=== PATIENT | female | born 1985 | race African-American/Black ===

== ENCOUNTER 2016-11-16 12:05 | Outpatient (CLI) | payer OTHER ==
[~2016-11-16] VITALS: Ht 160 cm; Wt 80.0 kg
[~2016-11-16 12:05] MED LIST: PRENTAB9 PO
[2016-11-16] MEDS ORDERED: TUMS500C PO (12:15)
[2016-11-16 12:21] VITALS: BP 111/54
--- NOTE | 2016-11-16 13:03 | IPNPDOC ---
Text Note Date of Service The patient was seen on 11/16/16. NOTE Subjective: Ericka is a 31yo with a marcos IUP at 32w5d who presents to triage for itchy rash. She called the provider line and was told to come in if it didnt resolve with Benadryl overnight. She arrived to L&D instead of clinic and on questioning about obstetric complaints also endorsed not feeling movement today, so stayed for evaluation. She notes she has had this rash for the last two weeks. Arrived here having PCSed from [place] mid September. The rash is really just single itchy bumps that appear all over her body randomly, but itch so much that it keeps her from sleeping because it is worse at night. No itching on palms or soles of feet. Occasional lesion on her abdomen, back and extremities. No animals in the home. No concern for bed bugs. No changes in soaps/detergents, etc. ROS: Admits: irreg CTXs, good oral hydration Denies: Vaginal bleeding/discharge/loss of fluid, fever, N/V, dysuria, urinary urgency, vaginal itching or pain. Objective: Vitals wnl NST Reactive with no decels, mod feliberto, +accels [place]: ctx q2-5 min Physical Exam: General: WDWN gravid female in NAD Mental : AAOx3 Abdominal: Gravid abdomen without guarding or tenderness, one pinpoint scabbed over lesion with no erythema surrounding it Extremity: no edema in LE bilaterally, rare pinpoint scabbed over lesions with no surrounding erythema (SCE chaperoned by L&D RN): closed/thick/high (performed for ctx on toco, patient does not complaint of ctx) Assessment: Ericka is a 31yo with a marcos IUP at 32w5d with itchy diffuse, but rare bumps. No evidence of IHCP or PUPPS, no concern for scabies or fleas/ticks. Likely a simple or environment related atopic reaction. Vitals wnl. Reactive NST with incidentally noted ctx, SCE cl/thick/ high. Patient now feeling good movement. Plan: -Will Rx Sarna lotion to [place] - kick counts prn -encouraged adequate hydration -Return precautions given for bleeding, fluid loss, contractions, decreased movement, worsening of rash -medrec reviewed Dr. Nancy Hsieh MD [place] VS,Ciara, I+O VSCiara, I+O Vital Signs Date Time Temp Pulse Resp B/P Pulse Ox O2 Delivery O2 Flow Rate FiO2 11/16/16 12:21 98.6 92 18 111/54 NANCY HSIEH MD Nov 16, 2016 13:03
== END 2016-11-16 13:15 | disposition home or self-care (01) ==
LOC: M LDO 12:05
PROVIDERS: ATTEND Obstetrics & Gynecology
DX: O26.893 Other specified pregnancy related conditions, third trimester (principal); R21 Rash and other nonspecific skin eruption; Z3A.32 32 weeks gestation of pregnancy

== ENCOUNTER 2017-01-02 15:52 | Inpatient (IN) | payer OTHER ==
[~2017-01-02] VITALS: Ht 190.5 cm; Wt 86.0 kg
[2017-01-02] VITALS (29 sets, daily range): BP systolic 100–150; BP diastolic 53–82
[~2017-01-02 15:52] MED LIST changes: +TUMS500C PO
[2017-01-02] MEDS ORDERED: FIOR1CAP PO (16:23)
[2017-01-02] MEDS ORDERED: CYCL5TA PO (16:23)
[2017-01-02] MEDS ORDERED: SING10TA32 PO (16:24)
[2017-01-02] MEDS ORDERED: MUCI600T34 PO (16:24)
[2017-01-02] MEDS ORDERED: AMPICILLIN SOD 2 GM in D5W MINI-BAG PLUS 100 ML IV STA (19:15)
[2017-01-02] MEDS ORDERED: LACTATED RINGER'S 1000 ML IV STA (19:15)
[2017-01-02] MEDS: LR 1,000 ML IV SCH (19:31)
[2017-01-02] MEDS ORDERED: FENTANYL 2MCG/ML ROPIVACAINE 0.2% NACL 250 ML CADD As Ordered ONE (19:39)
[2017-01-02 19:45] LABS: MEAN CORPUSCULAR HEMOGLOBIN 29.6 pg (27.0-33.0); MEAN CORPUSCULAR HGB CONC 32.9 g/dl (32.0-36.5); MEAN CORPUSCULAR VOLUME 90.1 fl (80.0-96.0); RED CELL DISTRIBUTION WIDTH 14.4 % (11.5-14.5); WHITE BLOOD COUNT 7.9 K/mm3 (4.0-10.0)
[2017-01-02] MEDS ORDERED: LACTATED RINGER'S 1000 ML IV PRN (21:00)
[2017-01-02] MEDS ORDERED: ONDANSETRON 4MG/2ML VIAL (J2405) IV PRN (21:00)
[2017-01-02] MEDS ORDERED: ePHEDrine SULFATE 25 MG/5 ML(5MG/ML) SYRINGE IV PRN (21:00)
[2017-01-02] MEDS ORDERED: FENTANYL/ROPIVACAINE/NACL CADD 250 ML EPIDURAL SCH (21:00)
[2017-01-02] MEDS ORDERED: EPIDURAL/PCA KEYS XX PRN (21:00)
[2017-01-02] MEDS ORDERED: diphenhydrAMINE INJ 50MG/ML VIAL (J1200) IV PRN (21:00)
[2017-01-02] MEDS ORDERED: REFRIGERATOR IV KEYS XX PRN (21:00)
[2017-01-02] MEDS ORDERED: EPIDURAL COMMENT XX SCH (21:00)
[2017-01-02] MEDS ORDERED: NALOXONE INJ 0.4 MG/1 ML VIAL (J2310) IV PRN (21:00)
[2017-01-02] MEDS ORDERED: OXYTOCIN 30 UNITS IN 0.9% NaCl 500ML IV BAG (J2590) As Ordered ONE (22:20)
[2017-01-02] MEDS ORDERED: AMPICILLIN SOD 1 GM in D5W MINI-BAG PLUS 50 ML IV SCH (23:30)
[2017-01-02] MEDS ORDERED: OXYTOCIN DRIP 30 UNITS in APPROPRIATE DILUENT 1 EA IV SCH (23:31)
--- NOTE | 2017-01-02 23:40 | DNPDOC ---
Delivery Note Delivery Note DATE OF DELIVERY: Jan 02, 2017 at 2234 PREDELIVERY DIAGNOSIS: 39w3d gestation and labor. POST DELIVERY DIAGNOSIS: Delivered. PROCEDURE: Spontaneous vaginal delivery REGISTERED NURSE PRACTITIONER: Dr. José Luis Hsieh MD ANESTHESIA: epidural ESTIMATED BLOOD LOSS: 150mL. FINDINGS: 6 pound 11 ounce male infant, Score 8/9, nuchal cord times one. DELIVERY SUMMARY: Ericka is a 31yo G1 now P1001 who was admitted to L&D for active labor. She had an uncomplicated of a viable male at 2234 on 02 January 2017 at 39w3d. Head delivered OA, restituted HANNY. One tight nuchal cord reduced manually. Right anterior shoulder delivered followed by posterior shoulder and corpus, left compound hand noted. Cord clamped x2 and cut by patient's mother. Infant mouth/nares bulb suctioned. Spontaneous cry noted. Baby placed on mother's abdomen. Apgars 8/9, weight 9ep10bv or 3030g. Venous cord gas obtained secondary to late decelerations prior to delivery, arterial not able to be obtained. With gentle downward guidance and suprapubic pressure, placenta delivered spontaneously and intact with centrally inserted cord. Fundal massage until both uterine fundus and lower uterine segment firm; fundus at U-1. Pitocin 30 units IV bolus administered. Inspection of perineum and vaginal wall revealed no tears. Mom and in stable condition. Dr. José Luis Hsieh MD [place] Bangura MD Jan 02, 2017 23:40
[2017-01-02] MEDS ORDERED: RHOGAM 300 MCG (1500 IU) INJ (J2790) IM SCH (23:45)
[2017-01-02] MEDS ORDERED: DOCUSATE SODIUM 100 MG CAP PO PRN (23:45)
[2017-01-02] MEDS ORDERED: MEASLES,MUMPS,RUBELLA VACCINE INJ (MMR-II) (90707) SC SCH (23:45)
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
[2017-01-03 00:11] VITALS: BP 123/70
[2017-01-03 00:43] LABS: CORD GAS HCO3 V 20.4 MEQ/L; CORD GAS O2 SAT V 49.6 %; CORD GAS PCO2 V 39.3 mmHg; CORD GAS PH V 7.333 UNITS; CORD GAS PO2 V 35.2 mmHg; CORD GAS SBC V 19.2 MEQ/L; CORD GAS TCO2 V 21.6 MEQ/L
[2017-01-03 01:55] VITALS: BP 144/82
[2017-01-03 02:20] VITALS: BP 127/60
[2017-01-03] MEDS: IBUPROFEN 800 MG TAB PO PRN ×3 (03:03→20:09)
[2017-01-03 06:47] VITALS: BP 108/60
[2017-01-03] MEDS: LR 1,000 ML IV SCH ×2 (07:28→11:15)
[2017-01-03] MEDS: ACETAMINOPHEN 500 MG TAB PO PRN ×2 (09:45→16:56)
[2017-01-03] MEDS: PRENATAL VITAMIN TAB PO SCH (09:45)
[2017-01-03 18:00] VITALS: BP 110/62
[2017-01-04] MEDS: ACETAMINOPHEN 500 MG TAB PO PRN (01:56)
--- NOTE | 2017-01-04 02:08 | IPN ---
DATE: 01/03/2017 This lady and partner requested circumcision of their male after discussing the risks and benefits of circumcision, the medical and nonmedical indications of the penile block and aftercare, expressed understanding of the penile block and aftercare, answered all questions, signed and witnessed the consent form. We await the clearance by the production control clerk.
[2017-01-04] MEDS: IBUPROFEN 800 MG TAB PO PRN (05:38)
[2017-01-04 05:50] VITALS: BP 97/55
[2017-01-04] MEDS: PRENATAL VITAMIN TAB PO SCH (08:07)
--- NOTE | 2017-01-04 09:17 | IPNPDOC ---
Text Note Date of Service The patient was seen on 01/04/17. NOTE PPD#2 S: Ericka is a 31yo [id number] s/p uncomplicated at 39w3d after presenting in active labor. She has no complaints this am, lochia minimal, voiding well, ambulating without problem. without issues. O; Vitals wnl, afebrile Gen: A&O x3, sitting comfortably Cardiac: S1S2 present, no murmur Lungs: CTAB, no w/c/r Abdomen; FF @U-2cm, abdomen soft/non-distended/non-tender Ext: no pain with palpation of calves A: Ericka is a 31yo [id number] s/p uncomplicated at 39w3d after presenting in active labor. Hemodynamically stable without evidence of infection. Meeting all milestones. P: -discharge to home today vs boarding if needs to stay -home meds given: motrin, lanolin -follow-up PP visit in [address] José Luis Hsieh MD [place] DEIDRA VS,Ciara, I+O VS, Ciara, I+O Vital Signs Date Time Temp Pulse Resp B/P Pulse Ox O2 Delivery O2 Flow Rate FiO2 01/04/17 05:50 99.4 77 16 97/55 JOSÉ LUIS HSIEH MD Jan 04, 2017 09:17
[2017-01-04] MEDS ORDERED: IBUP-1114 PO (11:14)
== END 2017-01-04 16:45 | disposition home or self-care (01) | DRG 775 ==
LOC: M LDO 15:52 → M LDI 19:26 → M OBS 01-03 02:06
PROVIDERS: ADMIT Obstetrics & Gynecology; ATTEND Obstetrics & Gynecology
PROC: 10E0XZZ Delivery of Products of Conception, External Approach (ICD-10-PCS; principal; 2017-01-02)
DX: O99.52 Diseases of the respiratory system complicating childbirth (principal); J45.909 Unspecified asthma, uncomplicated; Z3A.39 39 weeks gestation of pregnancy; G43.909 Migraine, unspecified, not intractable, without status migrainosus; O99.354 Diseases of the nervous system complicating childbirth; O99.02 Anemia complicating childbirth; D64.9 Anemia, unspecified; O32.6XX0 Maternal care for compound presentation, not applicable or unspecified; O69.81X0 Labor and delivery complicated by cord around neck, without compression, not applicable or unspecified; Z37.0 Single live birth

== ENCOUNTER → 2017-07-10 | Outpatient (CLI) | payer OTHER ==
[~2017-07-10] MED LIST changes: +CYCL5TAB PO; +FIOR1CAP PO; +IBUP-1114 PO; +MUCI600T37 PO; +SING10TA32 PO
--- NOTE | 2017-07-10 15:04 | REP ---
MRI LUMBAR SPINE WITHOUT CONTRAST: HISTORY: Back pain. Decreased signal intensity on T2-weighted images is present in the L5-S1 intervertebral disc. The disc is decreased in height. These findings are consistent with disc degeneration. There is no disc bulge or herniation at the L1-2 through L3-4 levels. The nerves exit the neural foramina without compression. A diffuse disc bulge is present at the L4-5 level. This abuts the thecal sac. The L4 nerves exit the neural foramina without compression. A diffuse disc bulge is present at the L5-S1 level. This abuts the thecal sac and S1 nerves. The L5 nerves exit the neural foramina without compression. The conus medullaris is normal in appearance terminating at the level of the L1-2 intervertebral disc. Increased signal intensity on T2-weighted images is present in the inferior endplate of the L5 vertebral body. This represents degenerative change. IMPRESSION: Diffuse disc bulges at the L4-5 and L5-S1 levels. The disc bulges abut the thecal sac. Signed by Reece Barrera MD 07/10/2017 03:09 P
== END ==
LOC: M RAD 13:27
PROVIDERS: ATTEND Nurse Practitioner Family
DX: M51.26 Other intervertebral disc displacement, lumbar region (principal)

== ENCOUNTER → 2017-08-04 | Outpatient (CLI) | payer OTHER ==
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
== END ==
LOC: M PAIN 13:15
PROVIDERS: ATTEND Nurse Practitioner Family
DX: M51.26 Other intervertebral disc displacement, lumbar region (principal); M54.16 Radiculopathy, lumbar region; J45.909 Unspecified asthma, uncomplicated; Z79.899 Other long term (current) drug therapy

== ENCOUNTER → 2017-09-26 | Outpatient (CLI) | payer OTHER | LOC: M PAIN 10:45 | PROVIDERS: ATTEND Anesthesiology | DX: M51.26 Other intervertebral disc displacement, lumbar region (principal); M54.16 Radiculopathy, lumbar region; Z53.9 Procedure and treatment not carried out, unspecified reason ==

== ENCOUNTER → 2017-11-29 | Outpatient (REF) | payer OTHER | LOC: M SFHCLERA 11:22 | DX: J02.9 Acute pharyngitis, unspecified (principal) ==

== ENCOUNTER → 2018-02-07 | Outpatient (CLI) | payer OTHER | LOC: M RAD 09:19 | DX: J32.9 Chronic sinusitis, unspecified (principal) ==

== ENCOUNTER 2018-05-02 07:15 | Day surgery (SDC) | payer OTHER ==
[2018-05-02] MEDS: LR 1,000 ML IV (07:50)
[2018-05-02 08:08] LABS: CONTROL LINE UCG INT CTR LINE PRESENT; URINE PREG TEST NEGATIVE (NEGATIVE)
[2018-05-02] MEDS ORDERED: ONDANSETRON 4MG/2ML VIAL (J2405) As Ordered (09:16)
[2018-05-02] MEDS ORDERED: ROCURONIUM BROMIDE 50 MG/5 ML VIAL As Ordered (09:16)
[2018-05-02] MEDS ORDERED: dexameTHASONE 4 MG/ML 1ML VIAL (J1100) As Ordered (09:16)
[2018-05-02] MEDS ORDERED: LIDOCAINE 2% INJ 100 MG/5 ML SDV (FOR ANES.) As Ordered (09:16)
[2018-05-02] MEDS ORDERED: MIDAZOLAM INJ 2 MG/2 ML VIAL (J2250) As Ordered (09:16)
[2018-05-02] MEDS ORDERED: fentaNYL 100 MCG/2 ML INJECTION (J3010) As Ordered ×3 (09:16→10:01)
[2018-05-02] MEDS ORDERED: PROPOFOL 200 MG/20 ML VIAL As Ordered (09:16)
[2018-05-02] MEDS ORDERED: PHENYLephrine HCL 500 MCG/5 ML (100MCG/ML) SYRINGE (J2370) As Ordered (09:26)
[2018-05-02] MEDS ORDERED: SUGAMMADEX SODIUM 500 MG/5 ML VIAL (BRIDION) As Ordered (09:30)
[2018-05-02] MEDS: OXYMETAZOLINE NASAL SPRAY (AFRIN) As Ordered (09:36)
[2018-05-02] MEDS: METHYLENE BLUE 0.5% (5MG/ML) 10 ML AMP (PROVAYBLUE)(Q9968 PER 1MG) As Ordered (09:36)
[2018-05-02] MEDS ORDERED: ESMOLOL INJ 100MG/10ML VIAL As Ordered (10:19)
[2018-05-02] MEDS: LIDOCAINE W/EPINEPHRINE 1% 20ML VIAL As Ordered (10:52)
[2018-05-02] MEDS ORDERED: LR 1,000 ML IV ×2 (11:00→11:15)
[2018-05-02] MEDS ORDERED: ACETAMINOPH W/CODEINE #3 TAB UD PO (11:15)
[2018-05-02] MEDS ORDERED: ONDANSETRON 4MG/2ML VIAL (J2405) IV (11:15)
[2018-05-02] MEDS: fentaNYL 100 MCG/2 ML INJECTION (J3010) IV ×4 (11:45→12:00)
[2018-05-02] MEDS ORDERED: PERCOCET 5MG/325MG TAB As Ordered (12:29)
[2018-05-02] MEDS: PERCOCET 5MG/325MG TAB PO (12:30)
== END 2018-05-02 14:08 | disposition home or self-care (01) ==
LOC: M SDC 07:15
DX: J32.9 Chronic sinusitis, unspecified (principal); M12.9 Arthropathy, unspecified; M54.9 Dorsalgia, unspecified; F41.9 Anxiety disorder, unspecified; F32.9 Major depressive disorder, single episode, unspecified; G43.909 Migraine, unspecified, not intractable, without status migrainosus; J45.909 Unspecified asthma, uncomplicated; R06.83 Snoring; Z79.899 Other long term (current) drug therapy
CPT/HCPCS: 31256

== ENCOUNTER → 2018-06-20 | Outpatient (CLI) | payer OTHER | LOC: M RAD 08:20 | DX: J32.4 Chronic pansinusitis (principal) | CPT/HCPCS: 70486 ==

== ENCOUNTER 2018-06-22 13:51 | Emergency (ER) | payer OTHER ==
[2018-06-22 14:55] LABS: KETONE, URINE AUTO RFX TRACE mg/dL (NEGATIVE); LEUKOCYTE ESTERASE UR AUTO RFX NEGATIVE (NEGATIVE); MUCUS, URINE RFX SMALL (NEGATIVE); NITRITE, URINE AUTO RFX NEGATIVE (NEGATIVE); RBC, URINE AUTO RFX 3 /HPF (0-3); SPECIFIC GRAVITY UR AUTO RFX 1.014 (1.002-1.035); SQUAM EPITHELIAL CELL UR AURFX 0 /HPF (0-6); WBC, URINE AUTO RFX 0 /HPF (0-3)
== END 2018-06-22 17:35 | disposition home or self-care (01) ==
LOC: M ED 13:51
DX: N83.202 Unspecified ovarian cyst, left side (principal); J45.909 Unspecified asthma, uncomplicated; F41.9 Anxiety disorder, unspecified; F32.9 Major depressive disorder, single episode, unspecified; Z79.899 Other long term (current) drug therapy
CPT/HCPCS: 76856

== ENCOUNTER 2018-08-09 11:09 | Emergency (ER) | payer OTHER ==
[2018-08-09] MEDS: NORCO, ANEXSIA 5/325MG TABLET (HYDROcodone/ACETAMINOPHEN) PO (11:58)
== END 2018-08-09 13:41 | disposition home or self-care (01) ==
LOC: M ED 11:09
DX: J32.9 Chronic sinusitis, unspecified (principal); R51 Headache; F41.9 Anxiety disorder, unspecified; F33.9 Major depressive disorder, recurrent, unspecified
CPT/HCPCS: 70486

== ENCOUNTER 2018-09-10 10:00 | Day surgery (SDC) | payer OTHER ==
[~2018-09-10] VITALS: Ht 161.3 cm; Wt 70.3 kg
[~2018-09-10 10:00] MED LIST changes: +ACET1TAB55 PO; +ACET30TAB PO; +CLIN150C14 PO; +FLON1SPR; +IBUP-1022 PO; +LIDOCAINE 1% MDV 20ML VIAL SQ PRN; +NORCOTAB PO; +PRED20TA PO; +PRED5TA PO; +PRENTAB29 PO; +PROAAER10 INH; +TYLE500T78 PO
[2018-09-10] MEDS ORDERED: LR 1,000 ML IV ONE (10:30)
[2018-09-10 10:37] LABS: URINE PREG TEST NEGATIVE (NEGATIVE)
[2018-09-10] MEDS ORDERED: PROPOFOL 200 MG/20 ML VIAL As Ordered ONE (11:54)
[2018-09-10] MEDS ORDERED: fentaNYL 100 MCG/2 ML INJECTION (J3010) As Ordered ONE ×2 (11:54→13:42)
[2018-09-10] MEDS ORDERED: dexameTHASONE 4 MG/ML 1ML VIAL (J1100) As Ordered ONE (11:54)
[2018-09-10] MEDS ORDERED: MIDAZOLAM INJ 2 MG/2 ML VIAL (J2250) As Ordered ONE (11:54)
[2018-09-10] MEDS ORDERED: ROCURONIUM BROMIDE 50 MG/5 ML VIAL As Ordered ONE (11:54)
[2018-09-10] MEDS ORDERED: LIDOCAINE 2% INJ 100 MG/5 ML SDV (FOR ANES.) As Ordered ONE (11:54)
[2018-09-10] MEDS ORDERED: GLYCOPYRROLATE INJ 0.2 MG/ML 2 ML VIAL As Ordered ONE ×2 (12:02→14:43)
[2018-09-10] MEDS ORDERED: EPINEPHrine 1MG/ML INJ 30ML MD-VIAL As Ordered ONE (12:38)
[2018-09-10] MEDS ORDERED: METHYLENE BLUE 0.5% (5MG/ML) 10 ML AMP (PROVAYBLUE)(Q9968 PER 1MG) As Ordered ONE (12:38)
[2018-09-10] MEDS ORDERED: LIDOCAINE W/EPINEPHRINE 1% 20ML VIAL As Ordered ONE (12:38)
[2018-09-10] MEDS ORDERED: PHENYLephrine HCL 500 MCG/5 ML (100MCG/ML) SYRINGE (J2370) As Ordered ONE ×2 (13:36→14:35)
[2018-09-10] MEDS ORDERED: ONDANSETRON 4MG/2ML VIAL (J2405) As Ordered ONE (13:43)
[2018-09-10] MEDS ORDERED: ESMOLOL INJ 100MG/10ML VIAL As Ordered ONE (14:13)
[2018-09-10] MEDS ORDERED: NEOSTIGMINE 10 MG/10 ML VIAL (J2710) As Ordered ONE (14:43)
[2018-09-10] MEDS ORDERED: ACETAMINOPH W/CODEINE #3 TAB UD PO PRN (15:15)
[2018-09-10] MEDS ORDERED: HYDROMORPHONE HCL 0.5 MG/ 0.5 ML SYRINGE (J1170 PER 1) IV PRN (15:15)
[2018-09-10] MEDS ORDERED: fentaNYL 100 MCG/2 ML INJECTION (J3010) IV PRN (15:15)
[2018-09-10] MEDS ORDERED: ONDANSETRON 4MG/2ML VIAL (J2405) IV PRN (15:15)
[2018-09-10] MEDS ORDERED: LR 1,000 ML IV SCH ×2 (15:15)
[2018-09-10] MEDS: PERCOCET 5MG/325MG TAB PO PRN ×2 (15:27→16:20)
[2018-09-10 15:54] VITALS: BP 138/76
[2018-09-10] MEDS ORDERED: PERCOCET 5MG/325MG TAB As Ordered ONE (16:19)
--- NOTE | 2018-09-11 11:55 | RO ---
DATE OF PROCEDURE: 09/10/2018 PREPROCEDURE DIAGNOSIS: Chronic rhinosinusitis. POSTPROCEDURE DIAGNOSIS: Chronic rhinosinusitis. PROCEDURE: Bilateral frontal sinusotomy, insert of balloon dilatation on the left side, and Propel implant placement. SURGEON: Rian Negrete MD PRODUCTION STATISTICAL CLERK: ANESTHESIA: FINDINGS: There was thickened mucosa in the anterior ethmoid air cell area on the left side. I removed all this. Once this was done, I could see the opening into the frontal sinus. I placed a guidewire up into the sinus to placement into the , and then I put in the implant. I went to the right side and there was some scarring, so what I could remove from the scarring and then I put a Propel implant on that side as well. The patient tolerated the procedure well. Less than 10 mL estimated blood loss. The patient was transferred to the recovery room in excellent condition.
== END 2018-09-10 16:25 | disposition home or self-care (01) ==
LOC: M SDC 10:00
PROVIDERS: ATTEND Otolaryngology
DX: J32.9 Chronic sinusitis, unspecified (principal); R29.898 Other symptoms and signs involving the musculoskeletal system; M12.9 Arthropathy, unspecified; M54.2 Cervicalgia; F41.9 Anxiety disorder, unspecified; F32.9 Major depressive disorder, single episode, unspecified; G43.909 Migraine, unspecified, not intractable, without status migrainosus; R06.2 Wheezing; J45.909 Unspecified asthma, uncomplicated; R06.83 Snoring; Z79.899 Other long term (current) drug therapy
CPT/HCPCS: 31070; 31296; 84703; C2625; J1100; J2250; J2370; J2405; J2710; J3010; Q9968

== ENCOUNTER → 2018-12-24 | Outpatient (CLI) | payer OTHER ==
[~2018-12-24] MED LIST changes: -LIDOCAINE 1% MDV 20ML VIAL SQ PRN
--- NOTE | 2018-12-24 12:29 | REP ---
MAXILLOFACIAL CT WITHOUT CONTRAST: HISTORY: Chronic sinusitis. COMPARISON: 08/09/2018. The patient is status post bilateral uncinectomy and partial ethmoidectomy. Mild mucosal thickening is present in the right maxillary sinus. Minimal mucosal thickening is present in the right sphenoid sinus. The remaining sinuses are clear. The middle and inferior nasal turbinates are partially paradoxical. There is minimal deviation of the nasal septum to the left. The cribriform plate, medial barry of the orbits, and optic canals are intact. The carotid canals form a segment of the posterolateral barry of the sphenoid sinus. IMPRESSION: 1. Postoperative change as described above. 2. Sinus mucosal thickening as described above. Electronically Signed by Reece Barrera MD 12/24/2018 01:33 P
== END ==
LOC: M RAD 07:20
PROVIDERS: ATTEND Clinical Nurse Specialist Psychiatric/Mental Health, Adult
DX: J01.90 Acute sinusitis, unspecified (principal)